=== PATIENT | female | born 1965 | race Caucasian/White ===

== ENCOUNTER 2016-08-05 16:47 | Emergency (ER) | payer BC ==
[2016-08-05] MEDS ORDERED: Ketorolac 30 MG/ML SDV IVPUSH ONE (16:53)
[2016-08-05] MEDS ORDERED: Sodium Chloride 0.9% 1,000 ML IV ONE (16:53)
[2016-08-05] MEDS ORDERED: Ondansetron 4 MG/2 ML SDV IVPUSH ONE (16:53)
--- NOTE | 2016-08-05 17:19 | EDM.PDOC ---
ED HPI Trauma - General Chief Complaint: Trauma Stated Complaint: UNK Time Seen by Provider: 08/05/16 16:50 Source: Reports: Patient History Limitations: Reports: No limitations - History of Present Illness INITIAL COMMENTS - FREE TEXT/NARRATIVE: History of present illness: [50 year old female presenting status post traumatic interaction with a cow while attempting to tag it's calf. Patient indicates some amount of neck pain, chest wall pain, lower left rib pain, as well as pain to left lower extremity.] Review of systems: As per history of present illness and below otherwise all systems reviewed and negative. Past medical history: As per history of present illness and as reviewed below otherwise noncontributory. Surgical history: As per history of present illness and as reviewed below otherwise noncontributory. Social history: No reported history of drug or alcohol abuse. Family history: As per history of present illness and as reviewed below otherwise noncontributory. Physical exam: HEENT: Atraumatic, normocephalic, pupils reactive, negative for conjunctival pallor or scleral icterus, mucous membranes moist, throat clear, neck supple, but with moderate amount of tenderness to palpation, trachea midline. Lungs: Clear to auscultation, breath sounds equal bilaterally, chest nontender. Heart: S1S2, regular, negative for clicks, rubs, or JVD. Abdomen: Soft, nondistended, nontender. Negative for masses or hepatosplenomegaly. Negative for costovertebral tenderness. Pelvis: Stable nontender. Genitourinary: Deferred. Rectal: Deferred. Extremities: Lateral malleolus swelling and ecchymosis, negative for cords or calf pain. Neurovascular unremarkable. Neuro: Awake, alert, oriented. Cranial nerves II through XII unremarkable. Cerebellum unremarkable. Motor and sensory unremarkable throughout. Exam nonfocal. Of note is trauma is that the posterior neck is tender to palpation, chest wall and lower rib cage also noted to be tender to palpation and left lateral malleolus with edema and ecchymosis with exquisite tenderness to very soft touch. Diagnostics: [CBC, CMP, CT of neck, chest x-ray, x-ray of left tib-fib and ankle] Therapeutics: [IV] Impression: [Left lateral malleolus fracture,superior sternal fracture] Plan: [Followup with or so, followup with PCP in regards to incidental findings as discussed with patient, crutches, and walking boot, brief run of medication] Definitive disposition and diagnosis as appropriate pending reevaluation and review of above. Allergies/ADRs: Allergies No Known Allergies Allergy (Verified 08/05/16 17:04) Review of Systems - Review of Systems Review Of Systems: See Below (See history of present illness) ED EXAM, TRAUMA (MAJOR/MULTI) - Physical Exam Exam: See Below (See history of present illness) Course - Vital Signs Last Recorded V/S: Last Vital Signs Temp 36.8 C 08/05/16 17:10 Pulse 102 H 08/05/16 19:10 Resp 16 08/05/16 19:10 BP 157/94 H 08/05/16 19:10 Pulse Ox 96 08/05/16 19:10 - Orders/Labs/Meds Orders: Active Orders 24 hr Category Date Time Status EKG Documentation Completion [RC] STAT Care 08/05/16 18:57 Active Ankle Min 3V Lt [CR] Stat Exams 08/05/16 16:57 Taken Cervical Spine wo Cont [CT] Stat Exams 08/05/16 16:55 Taken Chest 2V [CR] Stat Exams 08/05/16 16:54 Taken Tibia Fibula Lt [CR] Stat Exams 08/05/16 16:57 Taken HCG QUALITATIVE,URINE [URCHEM] Stat Lab 08/05/16 16:53 Uncollected UA W/MICROSCOPIC [URIN] Stat Lab 08/05/16 16:53 Uncollected Labs: Laboratory Tests 08/05/16 08/05/16 08/05/16 Range/Units 17:08 17:08 17:08 WBC 11.13 H (4.0-11.0) K/uL RBC 4.38 (4.30-5.90) M/uL Hgb 12.9 (12.0-16.0) g/dL Hct 39.1 (36.0-46.0) % MCV 89.3 (80.0-98.0) fL MCH 29.5 (27.0-32.0) pg MCHC 33.0 (31.0-37.0) g/dL RDW Std Deviation 42.5 (28.0-62.0) fl RDW Coeff of Megan 13 (11.0-15.0) % Plt Count 275 (150-400) K/uL MPV 10.00 (7.40-12.00) fL Neut % (Auto) 70.3 (48.0-80.0) % Lymph % (Auto) 21.6 (16.0-40.0) % Davis % (Auto) 6.2 (0.0-15.0) % Eos % (Auto) 1.5 (0.0-7.0) % Baso % (Auto) 0.4 (0.0-1.5) % Neut # (Auto) 7.8 H (1.4-5.7) K/uL Lymph # (Auto) 2.4 (0.6-2.4) K/uL Davis # (Auto) 0.7 (0.0-0.8) K/uL Eos # (Auto) 0.2 (0.0-0.7) K/uL Baso # (Auto) 0.1 (0.0-0.1) K/uL Nucleated RBC % 0.0 /100WBC Nucleated RBCs # 0 K/uL INR 0.94 (0.86-1.11) Sodium 140 (136-146) mmol/L Potassium 4.0 (3.5-5.1) mmol/L Chloride 107 (98-110) mmol/L Carbon Dioxide 22 (21-31) mmol/L BUN 15 (6.0-23.0) mg/dL Creatinine 0.9 (0.6-1.5) mg/dL Est Cr Clr Drug Dosing 74.34 mL/min Estimated GFR (MDRD) > 60.0 ml/min Glucose 102 (60-110) mg/dL Calcium 8.9 (8.8-10.8) mg/dL Total Bilirubin 0.3 (0.1-1.5) mg/dL AST 21 (5-40) IU/L ALT 21 (8-54) IU/L Alkaline Phosphatase 73 (40-150) Total Protein 7.6 (6.0-8.0) g/dL Albumin 4.3 (3.5-5.0) g/dL Globulin 3.3 (2.0-3.5) g/dL Albumin/Globulin Ratio 1.3 (1.3-2.8) Amylase 48 (10-90) U/L Lipase 13 (7-80) U/L Meds: Medications Discontinued Medications Generic Name Dose Route Start Last Admin Trade Name Chandanq PRN Reason Stop Dose Admin Sodium Chloride 1,000 mls @ 999 mls/hr 08/05/16 16:53 08/05/16 17:42 Normal Saline IV 08/05/16 17:53 999 mls/hr .Bolus ONE Administration Ketorolac Tromethamine 30 mg 08/05/16 16:53 08/05/16 17:44 Toradol IVPUSH 08/05/16 16:54 30 mg ONETIME ONE Administration Ondansetron HCl 4 mg 08/05/16 16:53 08/05/16 17:42 Zofran IVPUSH 08/05/16 16:54 4 mg ONETIME ONE Administration Departure - Departure Time of Disposition: 19:35 Disposition: Home, Self-Care 01 Condition: good Clinical Impression: Ankle fracture, lateral malleolus, closed Qualifiers: Encounter type: initial encounter Fracture alignment: nondisplaced Laterality: left Qualified Code(s): S82.65XA - Nondisplaced fracture of lateral malleolus of left fibula, initial encounter for closed fracture Sternal fracture Qualifiers: Encounter type: initial encounter Sternal location: unspecified Fracture type: closed Qualified Code(s): S22.20XA - Unspecified fracture of sternum, initial encounter for closed fracture Forms: ED Department Discharge Additional Instructions: The following information is given to patients seen in the emergency department who are being discharged to home. This information is to outline your options for follow-up care. We provide all patients seen in our emergency department with a follow-up referral. The need for follow-up, as well as the timing and circumstances, are variable depending upon the specifics of your emergency department visit. If you don't have a primary care physician on staff, we will provide you with a referral. We always advise you to contact your personal physician following an emergency department visit to inform them of the circumstance of the visit and for follow-up with them and/or the need for any referrals to a consulting specialist. The emergency department will also refer you to a specialist when appropriate. This referral assures that you have the opportunity for follow-up care with a specialist. All of these measure are taken in an effort to provide you with optimal care, which includes your follow-up. Under all circumstances we always encourage you to contact your private physician who remains a resource for coordinating your care. When calling for follow-up care, please make the office aware that this follow-up is from your recent emergency room visit. If for any reason you are refused follow-up, please contact the [facility] Emergency Department at and asked to speak to the emergency department charge nurse. Followup with Ortho so as directed Followup with your PCP in one to 2 days Return to ED as needed as discussed [facility] Professional Building [address] [place] [address], [address] [place] [address] - My Orders Last 24 Hours: My Active Orders 08/05/16 16:53 HCG QUALITATIVE,URINE [URCHEM] Stat UA W/MICROSCOPIC [URIN] Stat 08/05/16 16:54 Chest 2V [CR] Stat 08/05/16 16:55 Cervical Spine wo Cont [CT] Stat 08/05/16 16:57 Ankle Min 3V Lt [CR] Stat Tibia Fibula Lt [CR] Stat 08/05/16 18:57 EKG Documentation Completion [RC] STAT - Assessment/Plan Last 24 Hours: My Active Orders 08/05/16 16:53 HCG QUALITATIVE,URINE [URCHEM] Stat UA W/MICROSCOPIC [URIN] Stat 08/05/16 16:54 Chest 2V [CR] Stat 08/05/16 16:55 Cervical Spine wo Cont [CT] Stat 08/05/16 16:57 Ankle Min 3V Lt [CR] Stat Tibia Fibula Lt [CR] Stat 08/05/16 18:57 EKG Documentation Completion [RC] STAT
[2016-08-05 17:45] LABS: CHLORIDE,CL 107 mmol/L (98-110); SODIUM,NA 140 mmol/L (136-146)
[2016-08-05 20:58] VITALS: BP 168/89
--- NOTE | 2016-08-06 14:51 | CT ---
EXAM DATE: 08/05/16 PATIENT'S AGE: 50 Patient: JOHANN RICH Facility: [place], [place] Site . Site : 1965 Study: CT Spine Cervical [id number]/30/2017 5:35:33 PM Ordering Physician: Doctor Donnelly Final Report: INDICATION: Injury TECHNIQUE: CT cervical spine without contrast. COMPARISON: None FINDINGS: Vertebral alignment: Alignment is normal. Vertebrae: There are no cervical spine fractures. There are a few lucent lesions within the vertebrae, for example, a 0.3 cm round lucency at the left dens base, a 0.3 cm round lucency in the posterior aspect of the C3 vertebrae, and a 0.3 cm round lucency in the anterolateral aspect of the C6 vertebrae. Discs and facet joints: Disc spaces and facets are within normal limits. Extraspinal findings: There is a minimally displaced fracture of the left superior sternum. Small amount of retrosternal hematoma. The visualized lungs are clear. IMPRESSION: 1. No cervical spine fracture or subluxation. 2. Minimally displaced left superior sternal fracture. 3. There are a few lucent lesions within the vertebrae. Although these could represent tiny hemangiomas, correlation with any history of malignancy is recommended. MRI would be useful for further evaluation if clinically indicated. 4. These findings were discussed with Dr. Dai at 6:12pm on 08/05/2016. Dictated by Kathy Cristina MD @ Aug 05 2016 6:09PM (Electronic Signature) Report Signed by Proxy and Original Signed Document filed in the Medical Record. [facility]
--- NOTE | 2016-08-06 14:52 | CR ---
EXAM DATE: 08/05/16 PATIENT'S AGE: 50 Patient: JOHANN RICH Facility: [place], [place] Site . Site : 1965 Study: XRay Chest [id number]/30/2017 6:06:54 PM Ordering Physician: Doctor Donnelly Final Report: INDICATION: Trauma TECHNIQUE: Chest 2 views. COMPARISON: None available FINDINGS: Cardiovascular and mediastinum: Heart size and vasculature are normal in caliber and appearance. Mediastinum is within normal limits. Lungs and pleural spaces: Lungs are clear. No sign of infiltrate or mass. No sign of pleural effusion. No pneumothorax. Bones and soft tissues: Slight thoracic scoliotic deformity. IMPRESSION: No sign of acute disease. Dictated by Vadim Haque MD @ 08/05/2016 6:30:29 PM Dictated by: Vadim Haque MD @ 08/05/2016 18:30:33 (Electronic Signature) Report Signed by Proxy and Original Signed Document filed in the Medical Record. MTDD
--- NOTE | 2016-08-06 14:57 | CR ---
EXAM DATE: 08/05/16 PATIENT'S AGE: 50 Patient: JOHANN RICH Facility: [place], [place] Site . Site : 1965 Study: XRay Extremity tib/fib [id number]/30/2017 6:21:27 PM Ordering Physician: Doctor Donnelly Final Report: Indication: Trauma Technique: Frontal and lateral views left tibia and fibula. Comparison: None Findings: Note that the lateral views of the distal left tibia and fibula were included on the left ankle films performed at the same time. There is a minimally displaced left medial malleolus fracture with mild adjacent soft tissue swelling. Remainder of the osseous structures are intact. Impression: Minimally displaced left medial malleolus fracture. Dictated by Kathy Cristina MD @ Aug 05 2016 6:49PM (Electronic Signature) Report Signed by Proxy and Original Signed Document filed in the Medical Record. SHELL
--- NOTE | 2016-08-06 14:58 | CR ---
EXAM DATE: 08/05/16 PATIENT'S AGE: 50 Patient: JOHANN RICH Facility: [place], [place] Site . Site : 1965 Study: XRay Extremity ankle [id number]/30/2017 6:21:46 PM Ordering Physician: Doctor Donnelly Final Report: Indication: Trauma Technique: Three views left ankle Comparison: None Findings/impression: : Minimally displaced left medial malleolus fracture with overlying soft tissue swelling. Remainder of the osseous structures are intact. Dictated by Kathy Cristina MD @ Aug 05 2016 6:57PM (Electronic Signature) Report Signed by Proxy and Original Signed Document filed in the Medical Record. [facility]
== END 2016-08-05 20:16 | disposition home or self-care (01) ==
LOC: MW.ED 16:47
DX: S82.65XA Nondisplaced fracture of lateral malleolus of left fibula, initial encounter for closed fracture (principal); S22.20XA Unspecified fracture of sternum, initial encounter for closed fracture; W55.29XA Other contact with cow, initial encounter
CPT/HCPCS: 36415; 71020; 72125; 73590; 73610; 80053; 81001; 82150; 83690; 85025; 85610; 93005; 96361; 96374; 96375; 99284; G0390; J1885; J2405; J7040; 99283

== ENCOUNTER 2016-08-16 08:39 | Day surgery (SDC) | payer BC ==
[~2016-08-16 08:39] MED LIST: Lactated Ringers 1,000 ML IV SCH; ceFAZolin 1 GM in Premix Bag 1 BAG IV SCH
[2016-08-16] MEDS ORDERED: Acetaminophen/HYDROcodone 325-5 MG Tab PO PRN (09:00)
[2016-08-16] MEDS ORDERED: Bupivacaine 0.25% 10 ML SDV ONE (09:17)
[2016-08-16] MEDS ORDERED: Bupivacaine 0.25%/EPINEPHrine 1:200,000 10 ML SDV ONE (09:17)
[2016-08-16] MEDS ORDERED: Lidocaine 2% 5 ML SDV ONE (09:44)
[2016-08-16] MEDS ORDERED: fentaNYL 100 MCG/2 ML SDV ONE (09:45)
[2016-08-16] MEDS ORDERED: Midazolam 1 MG/ML 2 ML SDV ONE (09:45)
[2016-08-16] MEDS ORDERED: Propofol 200 MG/20 ML SDV ONE (09:45)
--- NOTE | 2016-08-16 10:05 | PCM.PREANE ---
Preanesthetic Assessment - Anesthesia/Transfusion/Family Hx Anesthesia History: Prior Anesthesia Without Reaction Family History of Anesthesia Reaction: No Transfusion History: No Prior Transfusion(s) Intubation History: Unknown - Review of Systems General: Other (sore neck muscles, improves with positioning; pain in ankle) Pulmonary: Other (left lower sternal pain) Cardiovascular: No Symptoms Gastrointestinal: No symptoms Other: Reports: None - Physical Assessment O2 Sat by Pulse Oximetry: 100 Respiratory Rate: 16 Vital Signs: Last Vital Signs Temp 98.2 F 08/16/16 09:03 Pulse 76 08/16/16 09:03 Resp 16 08/16/16 09:03 BP 143/75 H 08/16/16 09:03 Pulse Ox 100 08/16/16 09:03 Height: 5 ft 7 in Weight: 155 lb 13.87 oz ASA Class: 2 Mental Status: Alert & Oriented x3 Airway Class: Mallampati = 1 Dentition: Reports: Normal Dentition Thyro-Mental Finger Breadths: 3 Mouth Opening Finger Breadths: 3 ROM/Head Extension: Full Lungs: Clear to auscultation, Normal respiratory effort Cardiovascular: Regular Rate, Regular Rhythm - Lab Values: Laboratory Last Values Urine HCG, Qual NEGATIVE (NEGATIVE) 08/16/16 09:00 - Allergies Allergies/Adverse Reactions: Allergies Allergy/AdvReac Type Severity Reaction Status Date / Time No Known Allergies Allergy Verified 08/05/16 17:04 - Blood Blood Available: No Product(s) Available: None - Anesthesia Plan Pre-Op Medication Ordered: None - Acknowledgements Anesthesia Type Planned: General Anesthesia (LMA) Pt an Appropriate Candidate for the Planned Anesthesia: Yes Alternatives and Risks of Anesthesia Discussed w Pt/Guardian: Yes Pt/Guardian Understands and Agrees with Anesthesia Plan: Yes PreAnesthesia Questionnaire - Past Health History Medical/Surgical History: Denies Medical/Surgical History Other Musculoskeletal History: current fx to sternum and left ankle, - Past Surgical History Head Surgeries/Procedures: Reports: None Other Female Surgeries/Procedures: ESSURE - SUBSTANCE USE Smoking Status *Q: Never Smoker Recreational Drug Use History: No - HOME MEDS Home Medications: Home Meds Hydrocodone/Acetaminophen [Hydrocodon-Acetaminophen 5-325] 1 tab PO ASDIRECTED PRN 08/11/16 [History] - CURRENT (IN HOUSE) MEDS Current Meds: Current Medications Hydrocodone Bitart/Acetaminophen ([place]ell 325-5 Mg) 1 - 2 tab PO Q4H PRN PRN Reason: Pain Lactated Ringer's (Ringers, Lactated) 1,000 mls @ 100 mls/hr IV ASDIRECTED CASEY Last Admin: 08/16/16 09:05 Dose: 100 mls/hr Cefazolin Sodium/Dextrose 1 gm (/ Premix) 50 mls @ 100 mls/hr IV ONCALL CASEY Discontinued Medications Bupivacaine HCl (Sensorcaine-Mpf 0.25%) Confirm Administered Dose 10 ml .ROUTE .STK-MED ONE Stop: 08/16/16 09:18 Bupivacaine HCl/Epinephrine Bitart (Marcaine 0.25%/Epinephrine 1:200,000) Confirm Administered Dose 10 ml .ROUTE .STK-MED ONE Stop: 08/16/16 09:18 Fentanyl (Sublimaze) Confirm Administered Dose 100 mcg .ROUTE .STK-MED ONE Stop: 08/16/16 09:46 Cefazolin Sodium/Dextrose (Ancef) Confirm Administered Dose 50 mls @ as directed .ROUTE .STK-MED ONE Stop: 08/16/16 09:44 Lidocaine (Xylocaine-Mpf 2%) Confirm Administered Dose 5 ml .ROUTE .STK-MED ONE Stop: 08/16/16 09:45 Midazolam HCl (Versed 1 Mg/Ml) Confirm Administered Dose 2 mg .ROUTE .STK-MED ONE Stop: 08/16/16 09:46 Propofol (Diprivan 20 Ml) Confirm Administered Dose 200 mg .ROUTE .STK-MED ONE Stop: 08/16/16 09:46 Preanesthetic Assessment - ANESTHESIA/TRANSFUSION/FAMILY HX Family History of Anesthesia Reaction: No - PHYSICAL ASSESSMENT O2 Sat by Pulse Oximetry: 100 RR: 16 Vital Signs: Last Vital Signs Temp 98.2 F 08/16/16 09:03 Pulse 76 08/16/16 09:03 Resp 16 08/16/16 09:03 BP 143/75 H 08/16/16 09:03 Pulse Ox 100 08/16/16 09:03 Height: 5 ft 7 in Weight: 155 lb 13.87 oz - LAB Values: Laboratory Last Values Urine HCG, Qual NEGATIVE (NEGATIVE) 08/16/16 09:00 - ALLERGIES Allergies/Adverse Reactions: Allergies Allergy/AdvReac Type Severity Reaction Status Date / Time No Known Allergies Allergy Verified 08/05/16 17:04
[2016-08-16] MEDS ORDERED: HYDROmorphone 2 MG/ML Syringe ONE (10:52)
[2016-08-16] MEDS ORDERED: fentaNYL 100 MCG/2 ML SDV IVPUSH PRN (11:07)
[2016-08-16] MEDS ORDERED: Ondansetron 4 MG/2 ML SDV ONE (11:11)
[2016-08-16] MEDS ORDERED: Ketorolac 30 MG/ML SDV ONE (11:11)
--- NOTE | 2016-08-16 11:33 | PCM.OPNOTE ---
- General Post-Op/Procedure Note Date of Surgery/Procedure: 08/16/16 Operative Procedure(s): ORIF left medial malleolus Post-Op Diagnosis: left medial malleolus fracture Anesthesia Technique: General LMA Primary Surgeon: Leana Nielsen [employer] Supervisor: Karissa Dewitt in mLs: 5 Condition: Good Free Text/Narrative:: tt=14 min #[id number]
--- NOTE | 2016-08-16 11:52 | PCM.POSTAN ---
POST ANESTHESIA ASSESSMENT - MENTAL STATUS Mental Status: alert, oriented - RESPIRATORY Respiratory Status: respiratory rate WNL, airway patent, O2 saturation stable - CARDIOVASCULAR CV Status: pulse rate WNL, blood pressure stable - GASTROINTESTINAL GI Status: no symptoms - POST OP HYDRATION Hydration Status: adequate & stable
[2016-08-16 13:03] VITALS: BP 142/84
--- NOTE | 2016-08-16 13:03 | PCM48HPAN ---
Post Anesthesia Note - EVALUATION WITHIN 48HRS OF ANESTHETIC Vital Signs in Normal Range: Yes Patient Participated in Evaluation: Yes Respiratory Function Stable: Yes Airway Patent: Yes Cardiovascular Function Stable: Yes Hydration Status Stable: Yes Pain Control Satisfactory: Yes Nausea and Vomiting Control Satisfactory: Yes Mental Status Recovered: Yes - COMMENTS/OBSERVATIONS Free Text/Narrative:: No apparent anesthesia complications.
--- NOTE | 2016-08-16 16:25 | CR ---
EXAM DATE: 08/16/16 PATIENT'S AGE: 50 Patient: JOHANN RICH Facility: [place], [place] Site Site : 1965 Study: XRay Extremity Left [id number] 1:27:12 PM Ordering Physician: Victoria CHAVEZ Final Report: INDICATION: Left ankle fracture with open reduction internal fixation. TECHNIQUE: 08/05/2016 IMPRESSION: C-arm fluoroscopy was provided for purposes of open reduction internal fixation of an ankle fracture. Fluoroscopy time 0.2 minutes. 4Images were captured. Dictated by Refugio Alberto MD @ Aug 16 2016 1:51PM (Electronic Signature) Report Signed by Proxy and Original Signed Document filed in the Medical Record. MTDD
--- NOTE | 2016-08-16 19:40 | OR ---
SURGEON: Leana Nielsen MD DATE OF PROCEDURE: 08/16/2016 PREOPERATIVE DIAGNOSIS: Displaced left medial malleolus fracture. POSTOPERATIVE DIAGNOSIS: Displaced left medial malleolus fracture. PROCEDURE: Open reduction and internal fixation, left medial malleolus. SKEIN MERCERIZING MACHINE OPERATOR: Karissa Dewitt PA-C. ANESTHESIA: General. ESTIMATED BLOOD LOSS: 5 mL. TOURNIQUET TIME: 14 minutes. COMPLICATIONS: None. DVT PROPHYLAXIS: Not indicated. IMPLANTS USED: Two Temo 4.0 partially threaded cancellous screws with two washers. BRIEF HISTORY: Kacey is a 50-year-old female who injured her left ankle after being hit by a cow. She was evaluated in clinic. She was found to have displacement of the medial malleolus fracture. No other injuries in the ankle were appreciated. It was felt to be due to direct trauma. Due to the displacement of the fracture, I did recommend surgical intervention. The risks and goals of procedure were discussed with the patient and documented preoperatively. She agreed to proceed. DESCRIPTION OF PROCEDURE: The patient was properly identified and brought to the operating room. She was transferred from the OR cart and placed on the operating table in supine position. General anesthesia was administered. After adequate anesthesia was obtained, a well-padded tourniquet was applied to the left lower extremity. The left lower extremity was then prepped in standard fashion using ChloraPrep solution. It was then sterilely draped. A time-out was performed to ensure correct site and procedure. Preoperative antibiotics were given. The surgical site had been marked preoperatively. The tourniquet was then inflated to 250 mmHg. An incision was made over the medial aspect of the ankle, centered over the medial malleolus. The subcutaneous tissues were incised. The saphenous vein was identified and was retracted. This was protected throughout the procedure. The fracture was then identified. This was opened and extensively irrigated with saline solution to evacuate the fracture hematoma. The edges of the periosteum were also elevated as they had folded in on the fracture site. The fracture was then held in a reduced position and 2 threaded K-wires were passed from the tip of the medial malleolus into the distal tibia. C-arm images confirmed good reduction of the fracture with no intra-articular hardware penetration. I elected to proceed with 4.0 mm partially threaded cancellous screws with a washer. These were placed without difficulty as the fracture was held in a reduced position. There was good compression at the fracture site. Final C-arm images confirmed anatomic reduction of the fracture with good position of the hardware. The wound was then copiously irrigated with saline solution. The tourniquet was deflated. No excess bleeding was noted. The subcutaneous tissues were closed with 2-0 Monocryl and the skin was closed with joanna. Xeroform gauze was placed over the wound. 0.25% Marcaine with epinephrine was injected around the incision site for postoperative anesthesia. A well-padded posterior splint with medial and lateral stabilizing slabs was then placed. She was awakened from her anesthetic and transferred back to the operating room cart. She was brought to recovery room in stable condition. All needle and sponge counts were correct. DAVIN CARLOS /[id number]
== END 2016-08-16 13:59 | disposition home or self-care (01) ==
LOC: MW.SDS 08:39
PROVIDERS: ATTEND Orthopaedic Surgery
DX: S82.52XA Displaced fracture of medial malleolus of left tibia, initial encounter for closed fracture (principal); Z98.890 Other specified postprocedural states
CPT/HCPCS: 27766; 76000; 81025; C1713; C1769; J0690; J1170; J1885; J2250; J2405; J3010; J7120; 01480; J2704

== ENCOUNTER → 2016-08-26 | Outpatient (CLI) | payer BC ==
--- NOTE | 2016-08-26 12:39 | CR ---
EXAMINATION: Left ankle HISTORY: Fracture COMPARISON: 08/05/2016 TECHNIQUE: 2 views FINDINGS/IMPRESSION: 2 screws are noted fixating the medial malleolus. Ankle mortise and talar dome appear preserved. Bone mineralization is otherwise normal.
--- NOTE | 2016-08-26 12:52 | CR ---
EXAMINATION: Left shoulder HISTORY: Pain COMPARISON: None TECHNIQUE: 3 views FINDINGS/IMPRESSION: There is no acute osseous abnormality, dislocation, or fracture identified. Bon e mineralization and joint spaces appear normal.
== END ==
LOC: MW.CHORTHO 08:21
PROVIDERS: ATTEND Physician Assistant
DX: S82.52XA Displaced fracture of medial malleolus of left tibia, initial encounter for closed fracture (principal); M25.512 Pain in left shoulder; Z96.7 Presence of other bone and tendon implants; Z87.81 Personal history of (healed) traumatic fracture
CPT/HCPCS: 73030-26-LT; 73030-LT; 73600-26-LT; 73600-LT

== ENCOUNTER → 2016-09-23 | Outpatient (CLI) | payer BC ==
--- NOTE | 2016-09-23 11:53 | CR ---
EXAMINATION: Left ankle HISTORY: Hardware COMPARISON: 08/26/2016 TECHNIQUE: 3 views FINDINGS/IMPRESSION: 2 screws are noted fixating the medial malleolus, unchanged in position and ali gnment. Otherwise the visualized osseous structures appear normal. The ankle mortise and talar dome appear preserved.
== END ==
LOC: MW.CHORTHO 07:47
PROVIDERS: ATTEND Orthopaedic Surgery
DX: Z96.7 Presence of other bone and tendon implants (principal); Z87.81 Personal history of (healed) traumatic fracture
CPT/HCPCS: 73610-26-LT; 73610-LT